=== PATIENT | male | born 1940 | race Caucasian/White ===

== ENCOUNTER 2024-03-08 19:38 | Emergency (ER) | payer OTHER, SELFPAY ==
[~2024-03-08] VITALS: Ht 177.8 cm; Wt 83.5 kg
[2024-03-08] MEDS ORDERED: CEPH500B PO (20:34)
[2024-03-08] MEDS: LIDOCAINE HCL 1% 20 ML VIAL INJ STA (20:55)
[2024-03-08 20:56] VITALS: BP 128/78; PULSE 68; RESP 16; TEMP 98.3; O2SAT 97
== END 2024-03-08 21:11 | disposition home or self-care (01) ==
LOC: EDH 19:38
DX: L76.02 Intraoperative hemorrhage and hematoma of skin and subcutaneous tissue complicating other procedure (principal); Z90.79 Acquired absence of other genital organ(s)
CPT/HCPCS: 12001; 99282